=== PATIENT | male | born 1965 | race Caucasian/White ===

== ENCOUNTER 2022-05-18 13:47 | Emergency (ER) | payer OTHER ==
[~2022-05-18] VITALS: Ht 188 cm; Wt 86.2 kg
[2022-05-18 13:57] VITALS: BP_SYST 155
[2022-05-18] MEDS ORDERED: CEPH-548 PO (16:16)
[2022-05-18] MEDS ORDERED: IBUP-1971 PO (16:17)
[2022-05-18 16:58] VITALS: BP_SYST 133
== END 2022-05-18 17:00 | disposition home or self-care (01) ==
LOC: SED 13:47
DX: L03.116 Cellulitis of left lower limb (principal); M79.662 Pain in left lower leg; Z79.899 Other long term (current) drug therapy
CPT/HCPCS: 93971; 99284